=== PATIENT | male | born 1965 | race Caucasian/White ===

== ENCOUNTER 2025-04-25 08:24 | Day surgery (SDC) | payer BC ==
[~2025-04-25] VITALS: Ht 172.7 cm; Wt 101.4 kg
[~2025-04-25 08:24] MED LIST: B-12100010 PO; BISO5TAB14 PO; BUDE10.22; FLUT1BLS; HYDR12.55 PO; MULTTAB61 PO; OMEP-173 PO; ROSU20TA86 PO; VITA500C22 PO
[2025-04-25] MEDS ORDERED: LIDOCAINE 2% 100 MG/5 ML SDV (FOR ANES.) As Ordered ONE (10:15)
[2025-04-25 10:34] VITALS: TEMP 97.3
[2025-04-25 11:15] VITALS: BP 139/94; O2SAT 97
== END 2025-04-25 11:26 | disposition home or self-care (01) ==
LOC: M OPP 08:24
PROVIDERS: ATTEND Surgery
DX: Z12.11 Encounter for screening for malignant neoplasm of colon (principal); K57.30 Diverticulosis of large intestine without perforation or abscess without bleeding; G47.30 Sleep apnea, unspecified; Z79.899 Other long term (current) drug therapy; J45.909 Unspecified asthma, uncomplicated